=== PATIENT | female | born 1955 | race Two or more races ===

== ENCOUNTER 2020-08-20 19:28 | Emergency (ER) | payer OTHER ==
[~2020-08-20] VITALS: Ht 165.1 cm; Wt 72.6 kg
[2020-08-20 19:50] VITALS: BP 172/69
== END 2020-08-20 23:20 | disposition home or self-care (01) ==
LOC: EDBD 19:28 → ER 19:35
DX: S16.1XXA Strain of muscle, fascia and tendon at neck level, initial encounter (principal); S20.219A Contusion of unspecified front wall of thorax, initial encounter; S09.8XXA Other specified injuries of head, initial encounter; E11.9 Type 2 diabetes mellitus without complications; V49.9XXA Car occupant (driver) (passenger) injured in unspecified traffic accident, initial encounter; Y93.89 Activity, other specified; Y92.488 Other paved roadways as the place of occurrence of the external cause; Y99.8 Other external cause status
CPT/HCPCS: 70450; 71046; 72125